=== PATIENT | male | born 1950 | race Two or more races ===

== ENCOUNTER 2017-10-07 18:00 | Emergency (ER) | payer OTHER ==
[~2017-10-07] VITALS: Ht 162.6 cm; Wt 87.5 kg
[~2017-10-07 18:00] MED LIST: NAP500T PO; TAMS0.4C36 PO
[2017-10-07 19:25] LABS: Basophils # (auto) 0.1 uL; Basophils % (auto) 0.5 % (0.0-2.0); Eosinophils # (auto) 0 uL; Eosinophils % (auto) 0.3 % (0.0-7.0); Hematocrit 34.6 % (41.0-53.0); Hemoglobin 11.7 g/dL (13.5-17.5); Lymphocytes # (auto) 1.6 uL; Lymphocytes % (auto) 13.7 % (10.0-50.0); Mean Corpuscular Hemoglobin 30.7 pg (28.0-32.0); Mean Corpuscular Hgb Conc. 33.9 g/dL (32.0-36.0); Mean Corpuscular Volume 90.8 fL (80.0-100.0); Mean Platelet Volume 7.3 fL (6.9-10.8); Monocytes # (auto) 1.1 uL; Monocytes % (auto) 9.9 % (0.0-12.0); Neutrophils # (auto) 8.7 uL; Neutrophils % (auto) 75.6 % (37.0-80.0); Platelet Count (auto) 193 10^3/uL (140-450); Red Cell Distribution Width 13.7 % (11.8-14.3); White Blood Cell 11.5 10^3/uL (4.4-10.8)
[2017-10-07 19:46] LABS: Albumin 3.1 g/dL (3.4-5.0); Alkaline Phosphatase 74 U/L (45-117); Anion Gap 8 (5-15); Aspartate Aminotransferase 13 U/L (15-37); BUN/Creatinine Ratio 25.6; Bilirubin, Total 0.5 mg/dL (0.2-1.0); Blood Urea Nitrogen 22 mg/dL (7-18); Calcium 8.5 mg/dL (8.5-10.1); Carbon Dioxide 22 mmol/L (21-32); Chloride 106 mmol/L (98-107); GFR African American 113 mL/min; GFR Non-African American 94 mL/min; Glucose 131 mg/dL (74-106); Magnesium 2.1 mg/dL (1.6-2.6); Potassium 4.2 mmol/L (3.5-5.1); Sodium 136 mmol/L (136-145); Total Protein 6.6 g/dL (6.4-8.2)
[2017-10-07] MEDS ORDERED: chlorproMAZINE HCL 25 MG/1 ML AMP IM ONE (23:45)
[2017-10-07] MEDS ORDERED: PANTOPRAZOLE 40 MG/10 ML VIAL IV ONE (23:45)
[2017-10-07] MEDS ORDERED: ALUM & MAG HYDROX-SIMETH LIQ(MAALOX) 30 ML PO ONE (23:45)
[2017-10-08 00:34] LABS: Basophils # (auto) 0 uL; Basophils % (auto) 0.4 % (0.0-2.0); Eosinophils # (auto) 0 uL; Eosinophils % (auto) 0.3 % (0.0-7.0); Hematocrit 32.9 % (41.0-53.0); Hemoglobin 11.2 g/dL (13.5-17.5); Lymphocytes # (auto) 1.6 uL; Lymphocytes % (auto) 14.9 % (10.0-50.0); Mean Corpuscular Hgb Conc. 34.1 g/dL (32.0-36.0); Mean Platelet Volume 7.9 fL (6.9-10.8); Monocytes # (auto) 1.1 uL; Monocytes % (auto) 10.9 % (0.0-12.0); Neutrophils # (auto) 7.7 uL; Neutrophils % (auto) 73.5 % (37.0-80.0); Platelet Count (auto) 190 10^3/uL (140-450); Red Cell Distribution Width 14.4 % (11.8-14.3); White Blood Cell 10.5 10^3/uL (4.4-10.8)
[2017-10-08 00:47] LABS: INR 1.05 (0.9-1.15); Partial Thromboplastin Time 26.4 sec (22.64-33.71); Prothrombin Time 11.5 sec (9.37-12.3)
[2017-10-08 00:54] LABS: Albumin 3.2 g/dL (3.4-5.0); Alkaline Phosphatase 69 U/L (45-117); Anion Gap 8 (5-15); Aspartate Aminotransferase 13 U/L (15-37); Bilirubin, Total 0.7 mg/dL (0.2-1.0); Blood Urea Nitrogen 21 mg/dL (7-18); Calcium 8.3 mg/dL (8.5-10.1); Carbon Dioxide 23 mmol/L (21-32); Chloride 106 mmol/L (98-107); GFR African American 117 mL/min; GFR Non-African American 96 mL/min; Glucose 119 mg/dL (74-106); Magnesium 2.1 mg/dL (1.6-2.6); Potassium 3.8 mmol/L (3.5-5.1); Sodium 137 mmol/L (136-145); Total Protein 6.5 g/dL (6.4-8.2)
[2017-10-08 00:56] LABS: B-Type Natriuretic Peptide 13.2 pg/mL (0-100); Temperature: 21.4 C (20.0-25.0)
[2017-10-08 05:50] VITALS: BP 138/69
== END 2017-10-08 05:51 | disposition home or self-care (01) ==
LOC: ER 18:17
DX: K21.9 Gastro-esophageal reflux disease without esophagitis (principal); R06.6 Hiccough; Z85.46 Personal history of malignant neoplasm of prostate
CPT/HCPCS: 36415; 71020; 80053; 83735; 83880; 84484; 85025; 85610; 85730; 93005; 94761; 96372; 96374; 99285; C9113; J3230